=== PATIENT | female | born 1980 | race Caucasian/White ===

== ENCOUNTER 2021-03-13 11:39 | Emergency (ER) | payer OTHER, SELFPAY ==
--- NOTE | ~2021-03-13 | US_ITS ---
EXAMINATION: PELVIC ULTRASOUND CLINICAL INFORMATION: Large right adnexal cysts with question of torsion of the ovary COMPARISON: CT scan performed earlier today, pelvic ultrasound 07/06/2014 TECHNIQUE: Transabdominal and endovaginal scanning was performed. Unfortunately the patient cut the endovaginal scan short and bilateral Doppler evaluation of the ovaries could not be performed. FINDINGS: An anteverted anteflexed uterus is present measuring 8.4 x 4.1 x 5.7 cm. An IUD is present in the endometrial canal good position. The endometrium measures 0.2 cm in thickness. The right ovary measures 6.7 x 4.4 x 7.0 cm for a volume of 108 mL which includes 2 ovarian cysts measuring 3.2 x 2.4 x 2.0 cm and 5.1 x 4.6 x 5.5 cm. Left ovary appears normal measuring 2.6 x 2.0 x 1.8 cm for a volume of 4.9 mL. Small amount of free pelvic fluid is seen. Doppler examination of the ovaries demonstrated normal flow in the right ovary but the left ovary Doppler examination was not performed for comparison. US/US pelvic ovarian doppler IMPRESSION: 1. 2 right ovarian cysts, largest measuring 5.5 cm. These are probably benign and a follow-up exam is recommended in 3-6 months. 2. Flow is present in the right ovary making devascularization from ovarian torsion unlikely. Flow within the left ovary could not be evaluated as the patient terminated the study.
--- NOTE | ~2021-03-13 | US_ITS ---
EXAMINATION: PELVIC ULTRASOUND CLINICAL INFORMATION: Large right adnexal cysts with question of torsion of the ovary COMPARISON: CT scan performed earlier today, pelvic ultrasound 07/06/2014 TECHNIQUE: Transabdominal and endovaginal scanning was performed. Unfortunately the patient cut the endovaginal scan short and bilateral Doppler evaluation of the ovaries could not be performed. FINDINGS: An anteverted anteflexed uterus is present measuring 8.4 x 4.1 x 5.7 cm. An IUD is present in the endometrial canal good position. The endometrium measures 0.2 cm in thickness. The right ovary measures 6.7 x 4.4 x 7.0 cm for a volume of 108 mL which includes 2 ovarian cysts measuring 3.2 x 2.4 x 2.0 cm and 5.1 x 4.6 x 5.5 cm. Left ovary appears normal measuring 2.6 x 2.0 x 1.8 cm for a volume of 4.9 mL. Small amount of free pelvic fluid is seen. Doppler examination of the ovaries demonstrated normal flow in the right ovary but the left ovary Doppler examination was not performed for comparison. US/US pelvic and transvaginal IMPRESSION: 1. 2 right ovarian cysts, largest measuring 5.5 cm. These are probably benign and a follow-up exam is recommended in 3-6 months. 2. Flow is present in the right ovary making devascularization from ovarian torsion unlikely. Flow within the left ovary could not be evaluated as the patient terminated the study.
--- NOTE | ~2021-03-13 | CT_ITS ---
EXAMINATION: CT ABDOMEN AND PELVIS WITH CONTRAST CLINICAL INFORMATION: Right lower abdominal pain. Rule out appendicitis. COMPARISON: None TECHNIQUE: Multidetector volumetric images were obtained from the superior aspect of the liver through the pubic symphysis following administration 85 mL of Omnipaque 350 intravenous contrast. Sagittal and coronal reformatted images were obtained on the technologist's workstation. Oral contrast: No This CT examination was performed using dose optimization techniques as appropriate, variously including the following: *Automated exposure control *Adjustment of mA and/or kV according to patient size (this includes techniques or standardized protocols for targeted exams where dose is matched to indication/reason for exam; i.e. extremities or head) *Use of iterative reconstruction technique DLP: 399 mGy-cm FINDINGS: LUNG BASES: The visualized lung bases are unremarkable. No pleural or pericardial effusion. LIVER, GALLBLADDER, AND BILIARY TREE: There is bilateral mild intrahepatic bile duct dilatation present. No radiopaque calculus is seen within the common bile duct. No focal hepatic lesions are identified. Status post cholecystectomy. PANCREAS: Unremarkable. No peripancreatic inflammatory change. No pancreatic duct dilatation. SPLEEN: Unremarkable. ADRENAL GLANDS: Unremarkable. KIDNEYS AND URETERS: The kidneys are normal in size, shape, and attenuation. No hydronephrosis, hydroureter, or calculi seen. No perinephric stranding. There are a few subcentimeter left cortical low-density lesions consistent with cysts. BLADDER: Unremarkable. GASTROINTESTINAL TRACT: No dilated loops of large or small bowel are evident. There is some free fluid seen within the pelvis. No free air is noted. There is diverticulosis of the sigmoid colon without definite acute diverticulitis appreciated. The appendix is visualized and appears unremarkable. Its tip does lie in a region of pelvic fluid. ABDOMINAL WALL: No significant hernia is appreciated. LYMPH NODES: No lymphadenopathy seen. VASCULAR: Unremarkable. PELVIC VISCERA: There appears to be a left ovarian corpus luteum cyst. There is some free fluid seen within the pelvis. This is predominantly right-sided. There is a 5.5 x 5.0 cm right adnexal cyst lying posterior to the uterus. IUD is seen in place. OSSEOUS STRUCTURES: No suspicious destructive bony lesions identified. There is some degenerative change of the left sacroiliac joint with sclerosis and subchondral cyst formation. CT/CT abdomen pelvis w con IMPRESSION: Left ovarian corpus luteum cyst. 5.5 x 5 cm right adnexal cyst. Small to moderate amount of free fluid about the pelvis. IUD in place. Intrahepatic bile duct dilatation.
[2021-03-13 11:57] VITALS: BP 119/86; PULSE 66; RESP 20; TEMP 36.6; O2SAT 99
[2021-03-13 12:15] VITALS: BP 101/70; PULSE 64; RESP 20; O2SAT 100; BMI 20.5
--- NOTE | 2021-03-13 12:27 | ED_ITS ---
HPI - Abdominal Pain General Chief Complaint: Abdominal Pain Stated Complaint: abd pain Time Seen by Provider: 03/13/21 12:18 History of Present Illness HPI narrative: Patient complains of right low abdominal pain which began last night mildly and has increased with nausea but no vomiting no diarrhea no burning with urination, patient does not have any appetite, denies any vaginal discharge, no fever Patient has history of PID in the past as well as status post cholecystectomy Related Data Previous Rx's Medication Instructions Recorded ibuprofen 600 mg PO Q6H PRN #14 tab 03/13/21 morphine 15 mg PO Q4-6H PRN #14 tab 03/13/21 ondansetron HCl [Zofran] 4 mg PO Q6H PRN #10 tab 03/13/21 Allergies Allergy/AdvReac Type Severity Reaction Status Date / Time No Known Allergies Allergy Unverified 06/16/20 17:38 Review of Systems Review of Systems Positive for right low abdominal pain and nausea Negatives are no fever no chills no dizziness no weakness no fainting no feeling faint no headache no neck pain no chest pain no shortness of breath no vomiting, no diarrhea no dysuria no frequency, no leg swelling no calf pain no rash no numbness weakness or tingling Yes all other systems are reviewed and are negative Physical Exam Vital Signs: Vital Signs: Last Vital Signs Temp 98.1 F 03/13/21 16:06 Pulse 75 03/13/21 18:38 Resp 20 03/13/21 18:38 BP 115/65 03/13/21 18:38 Pulse Ox 99 03/13/21 18:38 Body Mass Index 20.5 General appearance is very uncomfortable The head is normocephalic atraumatic The pupils are anicteric, no pallor The mucous membranes of the pharynx are moist there is no pharyngeal swelling or erythema or exudate Neck is supple Chest is clear to auscultation bilateral with full symmetric equal breath sounds Heart no murmur auscultated The abdomen shows right low abdominal tenderness around McBurney's point, there is no right upper quadrant tenderness no epigastric tenderness no other tenderness, there is mild rebound, no guarding Pelvic exam was deferred Extremities full range of motion x4, no calf swelling no edema Skin no rash Neuro patient is A&O x3, her communication both expression and understanding are normal, her gait and balance are normal no focal motor or sensory deficit Course Course Course Narrative: Patient's pain was controlled with morphine The urine did not reveal any she was not she had no urinary tract infection Labs did not reveal any other acute lab abnormality CT of the abdomen was done out of concern for appendicitis and it showed a normal appendix, as well as a 5.5 x 5 cm right adnexal cyst, there was a small to moderate amount of free fluid Case was discussed with attending Dr. roche who reviewed CT report and advised get an ultrasound to rule out torsion Ultrasound showed 2 ovarian cysts on the right the largest being 5.5 cm, it showed good flow and no evidence of torsion Re exam of the patient who is now comfortable hungry not nauseous and no pain after the morphine showed a completely nontender abdomen with no McBurney's point tenderness, she is tolerating p.o. and she is discharged to follow with green plumber MDM - Abdominal Pain Lab Data Result diagrams: 03/13/21 12:38 03/13/21 12:38 Labs: Lab Results 03/13/21 03/13/21 03/13/21 Range/Units 12:38 12:38 16:10 WBC 9.2 (4.8-10.8) X10*3/uL RBC 4.23 (4.20-5.50) X10*6/uL Hgb 13.0 (12.0-16.0) g/dl Hct 38.9 (37-47) % MCV 92.0 (80-98) fL MCH 30.7 (27.0-33.0) pg MCHC 33.4 (31.0-35.0) g/dl RDW 13.3 (11.0-16.0) % Plt Count 239 (160-400) X10*3/uL MPV 10.3 (9.4-12.3) fL Immature Gran % (Auto) 0.3 (0.0-0.4) % Neut % (Auto) 60.8 (45-73) % Lymph % (Auto) 26.5 (20-40) % Mobile % (Auto) 9.2 (2-11) % Eos % (Auto) 2.8 (0-4) % Baso % (Auto) 0.4 (0-2) % Lymph # (Auto) 2.5 (1.2-4.9) X10*3/uL Mobile # (Auto) 0.9 (0.1-1.2) X10*3/uL Eos # (Auto) 0.3 (0.0-0.4) X10*3/uL Baso # (Auto) 0.0 (0.0-0.2) X10*3/uL Abs Immat Gran (auto) 0.03 (0.00-0.03) X10*3/uL Absolute Neuts (auto) 5.6 (2.0-8.3) X10*3/uL Absolute Nucleated RBC 0.000 (0.0-0.012) X10*3/uL Nucleated RBC % (auto) 0.0 (0.0-0.2) /100WBC Sodium 137 (135-145) mmol/L Potassium 4.2 (3.3-5.1) mmol/L Chloride 108 (96-108) mmol/L Carbon Dioxide 21 L (22-29) mmol/L Anion Gap 12 (12-20) BUN 12 (9-16) mg/dL Creatinine 0.74 (0.5-1.4) mg/dL Estim Creat Clear Calc 88.6 Estimated GFR > 60 Random Glucose 91 (60-115) mg/dL Calcium 9.4 (8.4-10.2) mg/dL Total Bilirubin 0.7 (0.0-1.0) mg/dL Direct Bilirubin 0.2 (0.0-0.5) mg/dL AST 12 (5-31) U/L ALT 12 (0-31) U/L Alkaline Phosphatase 39 (39-117) U/L Total Protein 7.1 (6.5-8.0) g/dL Albumin 4.5 (3.5-5.0) g/dL Lipase 17 (8-78) U/L Beta HCG, Quant < 2 mIU/mL Urine Color YELLOW Urine Appearance HAZY Urine pH 8.0 (5.0-8.0) Ur Specific Hollenberg <= 1.005 (1.005-1.025) Urine Protein TRACE (NEG-TRACE) MG/DL Urine Glucose (UA) NEG (NEG) MG/DL Urine Ketones 15 (NEG) MG/DL Urine Blood NEG (NEG) Urine Nitrite NEG (NEG) Ur Leukocyte Esterase NEG (NEG) Urine Test (NEGATIVE) 03/13/21 Range/Units 16:10 WBC (4.8-10.8) X10*3/uL RBC (4.20-5.50) X10*6/uL Hgb (12.0-16.0) g/dl Hct (37-47) % MCV (80-98) fL MCH (27.0-33.0) pg MCHC (31.0-35.0) g/dl RDW (11.0-16.0) % Plt Count (160-400) X10*3/uL MPV (9.4-12.3) fL Immature Gran % (Auto) (0.0-0.4) % Neut % (Auto) (45-73) % Lymph % (Auto) (20-40) % Mobile % (Auto) (2-11) % Eos % (Auto) (0-4) % Baso % (Auto) (0-2) % Lymph # (Auto) (1.2-4.9) X10*3/uL Mobile # (Auto) (0.1-1.2) X10*3/uL Eos # (Auto) (0.0-0.4) X10*3/uL Baso # (Auto) (0.0-0.2) X10*3/uL Abs Immat Gran (auto) (0.00-0.03) X10*3/uL Absolute Neuts (auto) (2.0-8.3) X10*3/uL Absolute Nucleated RBC (0.0-0.012) X10*3/uL Nucleated RBC % (auto) (0.0-0.2) /100WBC Sodium (135-145) mmol/L Potassium (3.3-5.1) mmol/L Chloride (96-108) mmol/L Carbon Dioxide (22-29) mmol/L Anion Gap (12-20) BUN (9-16) mg/dL Creatinine (0.5-1.4) mg/dL Estim Creat Clear Calc Estimated GFR Random Glucose (60-115) mg/dL Calcium (8.4-10.2) mg/dL Total Bilirubin (0.0-1.0) mg/dL Direct Bilirubin (0.0-0.5) mg/dL AST (5-31) U/L ALT (0-31) U/L Alkaline Phosphatase (39-117) U/L Total Protein (6.5-8.0) g/dL Albumin (3.5-5.0) g/dL Lipase (8-78) U/L Beta HCG, Quant mIU/mL Urine Color Urine Appearance Urine pH (5.0-8.0) Ur Specific Hollenberg (1.005-1.025) Urine Protein (NEG-TRACE) MG/DL Urine Glucose (UA) (NEG) MG/DL Urine Ketones (NEG) MG/DL Urine Blood (NEG) Urine Nitrite (NEG) Ur Leukocyte Esterase (NEG) Urine Test NEGATIVE (NEGATIVE) Discharge Plan Discharge Clinical Impression: Ovarian cyst Patient Disposition: Home, Self-Care Additional Instructions: We did not find any evidence of appendicitis or any other acute or emergent finding today We did find a large right ovarian cyst in the area of pain We advise follow with the green plumber for further evaluation You can see your green plumber or if he is not available you can follow with If severe pain returns or any worse condition or any concerns come back to the ER for re-evaluation Prescriptions: New morphine 15 mg tablet 15 mg PO Q4-6H PRN (Reason: pain) Qty: 14 RF: 0 ibuprofen 600 mg tablet 600 mg PO Q6H PRN (Reason: pain) Qty: 14 RF: 0 ondansetron HCl [Zofran] 4 mg tablet 4 mg PO Q6H PRN (Reason: nausea and vomiting) Qty: 10 RF: 0 Referrals: Abhi Lopez MD [Physician] - 2 days (Painful right ovarian cyst) [facility] Past Medical History Source: nursing notes reviewed Social History Social History Advance Directives: No Advance Directives Information Provided: No
[2021-03-13] MEDS: ondansetron HCL 4 MG/2 ML VIAL IVPUSH (12:39)
[2021-03-13] MEDS: Morphine Sulfate 4 MG/ML CARTRIDGE IVPUSH ×3 (12:39→18:37)
--- NOTE | 2021-03-13 12:46 | PC.NURSE ---
Pt reports RL abd pain, started last night has gotten worse since this morning. She reports nausea no vomiting on and off. She states pain comes in waves. Pt took Ibuprofen this morning with no relief. IV has been established, labs obtained, pain meds given as documented. Labs pending. Mom at bedside. Provider at bedside.
[2021-03-13 12:48] LABS: MANUAL DIFF FLAG NO
[2021-03-13 12:52] LABS: Basophils Percent Auto 0.4 % (0-2); Eosinophils Absolute Auto 0.3 X10*3/uL (0.0-0.4); Eosinophils Percent Auto 2.8 % (0-4); Hematocrit 38.9 % (37-47); Imm Gran Abs Auto 0.03 X10*3/uL (0.00-0.03); Imm Gran Pct Auto 0.3 % (0.0-0.4); Lymphocytes Absolute Auto 2.5 X10*3/uL (1.2-4.9); Lymphocytes Percent Auto 26.5 % (20-40); Mean Corpuscular HGB Conc 33.4 g/dl (31.0-35.0); Mean Corpuscular Hemoglobin 30.7 pg (27.0-33.0); Mean Platelet Volume 10.3 fL (9.4-12.3); Monocytes Absolute Auto 0.9 X10*3/uL (0.1-1.2); Monocytes Percent Auto 9.2 % (2-11); Neutrophils Absolute Auto 5.6 X10*3/uL (2.0-8.3); Neutrophils Percent Auto 60.8 % (45-73); Platelet Count 239 X10*3/uL (160-400); Red Blood Count 4.23 X10*6/uL (4.20-5.50); Red Cell Distribution Width 13.3 % (11.0-16.0); White Blood Count 9.2 X10*3/uL (4.8-10.8)
[2021-03-13 13:28] LABS: Alanine Aminotransferase 12 U/L (0-31); Albumin Level 4.5 g/dL (3.5-5.0); Alkaline Phosphatase 39 U/L (39-117); Anion Gap 12 (12-20); Aspartate Amino Transferase 12 U/L (5-31); Bilirubin Direct 0.2 mg/dL (0.0-0.5); Bilirubin Total 0.7 mg/dL (0.0-1.0); Blood Urea Nitrogen 12 mg/dL (9-16); Calcium 9.4 mg/dL (8.4-10.2); Carbon Dioxide 21 mmol/L (22-29); Chloride 108 mmol/L (96-108); Creatinine Clr Calc Pharmacy 88.6; Estimated Glomerular Filt Rate > 60; Glucose Random 91 mg/dL (60-115); Lipase 17 U/L (8-78); Potassium 4.2 mmol/L (3.3-5.1); Sodium 137 mmol/L (135-145); Total Protein 7.1 g/dL (6.5-8.0)
[2021-03-13 13:37] LABS: HCG Quantitative < 2 mIU/mL
--- NOTE | 2021-03-13 14:32 | PC.NURSE ---
pt reports pain unrelieved by pain med given earlier. additional pain med given as documented. pt to ct scan at this time, Mother remains at bedside.
[2021-03-13] MEDS: iohexoL 350 MG/ML 100 ML INFUS..BTL IV (14:38)
[2021-03-13 16:06] VITALS: BP 110/63; PULSE 72; RESP 18; TEMP 36.7; O2SAT 97
[2021-03-13] MEDS: 0.9 % Sodium Chloride 1,000 ML 999 ML IVCONT (16:24)
[2021-03-13 16:26] VITALS: BP 110/63; PULSE 72; RESP 18; O2SAT 99
[2021-03-13 16:27] LABS: Glucose Urine UA NEG (NEG); Leukocyte Esterase Urine NEG (NEG); Nitrite Urine NEG (NEG); Specific Gravity - Urine <= 1.005 (1.005-1.025); Urine Blood NEG (NEG); Urine Ketones 15 MG/DL (NEG); Urine Protein TRACE MG/DL (NEG-TRACE)
[2021-03-13 16:28] LABS: UPreg QC Valid YES; Urine Pregnancy NEGATIVE (NEGATIVE)
[2021-03-13 16:32] LABS: Appearance Urine HAZY; Color Urine YELLOW
[2021-03-13 18:38] VITALS: BP 115/65; PULSE 75; RESP 20; O2SAT 99
== END 2021-03-13 20:32 | disposition home or self-care (01) ==
PROVIDERS: Physician Assistant Medical; Emergency Provider Emergency Medicine Emergency Medical Services
DX: N83.201 Unspecified ovarian cyst, right side (principal); N83.12 Corpus luteum cyst of left ovary; R11.0 Nausea
CPT/HCPCS: 36415; 74177; 76830; 76856; 80048; 80076; 81003; 81025; 83690; 84702; 85025; 93975; 96361; 96374; 96375; 96376; 99284; J2270; J2405; Q9967